=== PATIENT | male | born 1975 | race Caucasian/White ===

== ENCOUNTER 2016-11-18 14:40 | Emergency (ER) | payer OTHER ==
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
--- NOTE | 2016-11-18 16:01 | ED MED RECONCILIATION SUMMARY ---
Patient: SERVANDO SHERIFF Medication Reconciliation Report [facility] VisitID: [id number] [address] [place] [address] 41y, M Registration Date/Time: 11/18/2016 Weight: 99.7 kg Height/Length: 71 in. BMI: 30.7 ALLERGIES: Ibuprofen, Penicillins, Sulfa Antibiotics The patient's Home Medications are listed below: NONE. The source(s) of the original Home Medication information: Not obtained. The following Medications were given to the patient in the Emergency Department: None. The following Medications were prescribed to the patient: Acetaminophen (available over the counter): take according to label instructions. -- Laura Read, P.A.-Darcie Soma 350 mg: Take 1 orally every 6 hours as needed for muscle spasm. Dispense twenty (20). No refills. Substitution is permissible. -- Laura Read, P.A.-C
--- NOTE | 2016-11-18 16:01 | ED MED RECONCILIATION SUMMARY ---
Patient: SERVANDO SHERIFF Medication Reconciliation Report [facility] VisitID: [id number] [address] [place] [address] 41y, M Registration Date/Time: 11/18/2016 Weight: 99.7 kg Height/Length: 71 in. BMI: 30.7 ALLERGIES: Ibuprofen, Penicillins, Sulfa Antibiotics The patient's Home Medications are listed below: NONE. The source(s) of the original Home Medication information: Not obtained. The following Medications were given to the patient in the Emergency Department: None. The following Medications were prescribed to the patient: Acetaminophen (available over the counter): take according to label instructions. -- Laura Read, P.A.-Darcie Soma 350 mg: Take 1 orally every 6 hours as needed for muscle spasm. Dispense twenty (20). No refills. Substitution is permissible. -- Laura Read, P.A.-C
--- NOTE | 2016-11-18 16:01 | ED MAR SUMMARY ---
..... Medication Administration Record [facility] [address] [place], [place] [id number] Patient: SERVANDO SHERIFF Visit ID: [id number] 41y, M Weight: 99.7 kg Height/Length: 71 in BMI: 30.7 ALLERGIES: Ibuprofen, Penicillins, Sulfa Antibiotics
--- NOTE | 2016-11-18 16:01 | ED MAR SUMMARY ---
..... Medication Administration Record [facility] [address] [place], [place] [id number] Patient: SERVANDO SHERIFF Visit ID: [id number] 41y, M Weight: 99.7 kg Height/Length: 71 in BMI: 30.7 ALLERGIES: Ibuprofen, Penicillins, Sulfa Antibiotics
== END 2016-11-18 15:39 | disposition home or self-care (01) ==
LOC: ED SRH 14:40
DX: S16.1XXA Strain of muscle, fascia and tendon at neck level, initial encounter (principal); V53.5XXA Driver of pick-up truck or van injured in collision with car, pick-up truck or van in traffic accident, initial encounter; Y93.89 Activity, other specified; Y92.410 Unspecified street and highway as the place of occurrence of the external cause; Y99.9 Unspecified external cause status